=== PATIENT | female | born 1955 | race Caucasian/White ===

== ENCOUNTER 2019-01-09 06:50 | Emergency (ER) | payer OTHER | END 2019-01-09 07:55 | disposition home or self-care (01) | LOC: ERS 06:50 | DX: S02.5XXA Fracture of tooth (traumatic), initial encounter for closed fracture (principal); S00.511A Abrasion of lip, initial encounter; W18.30XA Fall on same level, unspecified, initial encounter | CPT/HCPCS: 99001; 99283 ==